=== PATIENT | female | born 1940 | race African-American/Black ===

== ENCOUNTER 2019-05-16 06:27 | Day surgery (SDC) | payer MEDICARE, MEDICAID ==
--- NOTE | 2019-05-10 16:15 | Opthalmology H&P ---
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 Elbert Orozco MD May 10, 2019 16:15
--- NOTE | 2019-05-10 16:17 | Pre-Procedure Note/Attestation ---
Pre-Procedure Note/Attestation Complete Prior to Procedure Planned Procedure: left Procedure Narrative: Cataract extraction with IOL implant left eye Indications for Procedure Pre-Operative Diagnosis: Cortical/Nuclear sclerotic cataract left eye Attestation I attest that I discussed the nature of the procedure; its benefits; risks and complications; and alternatives (and the risks and benefits of such alternatives ), prior to the procedure, with the patient (or the patient's legal senior outside sales representative). I attest that, if there was a reasonable possibility of needing a blood transfusion, the patient (or the patient's legal senior outside sales representative) was given the [facility] standardized written summary, pursuant to the Wade Rimma Blood Safety Act ([place] Health and Safety Code # 1645, as amended). I attest that I re-evaluated the patient just prior to the surgery and that there has been no change in the patient's H&P, except as documented below: Elbert Orozco MD May 10, 2019 16:17
[2019-05-16] VITALS (8 sets, daily range): BP systolic 54–133; BP diastolic 53–74
[~2019-05-16] VITALS: Ht 157.5 cm; Wt 71.7 kg
[~2019-05-16 06:27] MED LIST: ASPIR 8181 MG ORAL; DOCUSATE SODIU100 MG ORAL; GLIMEPIRIDE1 MG ORAL; LANTUS SOL100 UNIT/1 SUBQ; METAMUCIL FIBE3.4 G1 PO; TRULICITY0.75 MG/0. SQ; VITAMIN D32000 UNI3 PO
[2019-05-16] MEDS ORDERED: Akten 3.5% 1ml Btl LEFT EYE ONE (07:00)
[2019-05-16] MEDS ORDERED: Diclofenac Sod 0.1% Op Soln LEFT EYE SCH (07:00)
[2019-05-16] MEDS ORDERED: Tetracaine 0.5% Opth 4ml Soln LEFT EYE ONE (07:00)
[2019-05-16] MEDS ORDERED: Tobramycin Op Soln 0.3% 5ml LEFT EYE SCH (07:00)
[2019-05-16] MEDS ORDERED: Proparacaine 0.5% Opth Soln 15ml LEFT EYE ONE (07:00)
[2019-05-16] MEDS ORDERED: ATORVASTATIN CA40 MG ORAL (07:35)
[2019-05-16] MEDS: Cyclopentolate 1% Opth Sol 2ml LEFT EYE SCH ×3 (07:38→07:55)
[2019-05-16] MEDS: Phenylephrine 10% Opth Soln 5ml LEFT EYE SCH ×3 (07:39→07:55)
[2019-05-16] MEDS: Tropicamide 1% Opth 15ml Soln LEFT EYE SCH ×3 (07:39→07:55)
[2019-05-16] MEDS ORDERED: EPINEPHrine 1mg/1ml Amp ONE (07:53)
[2019-05-16] MEDS ORDERED: BSS 500ml btl ONE (07:54)
[2019-05-16] MEDS ORDERED: Sodium Hyaluronate 14 mg/ml 0.85ml ONE (07:54)
[2019-05-16] MEDS ORDERED: Povidone-Iodine 5% opth solution ONE (07:54)
[2019-05-16] MEDS ORDERED: BSS 15ml BTL ONE (07:54)
[2019-05-16] MEDS ORDERED: LR 1000ml 1,000 ML IVLG SCH (08:59)
--- NOTE | 2019-05-16 08:59 | Anethesia Preoperative Eval ---
Anesthesia Pre-op PMH/ROS General Date of Evaluation: May 16, 2019 Time of Evaluation: 08:56 Anesthesiologist: Madeleine ASA Score: ASA 3 Mallampati Score Class I : Soft palate, uvula, fauces, pillars visible Class II: Soft palate, uvula, fauces visible Class III: Soft palate, base of uvula visible Class IV: Only hard plate visible Mallampati Classification: Class II Surgeon: Pam Diagnosis: L eye cataract Surgical Procedure: L eye cataract extraction Anesthesia History: none Family History: no anesthesia problems Allergies: Coded Allergies: PENICILLINS (Verified Allergy, Severe, FACIAL ITCHING WITH BUMPS, 05/16/19) CODEINE (Verified Allergy, Mild, sick to my stomach, 05/16/19) Medications: see eMAR Patient NPO?: Yes Past Medical History Cardiovascular: Reports: HTN; Denies: CAD, [place], valve dz, arrhythmia, other Pulmonary: Denies: asthma, COPD, HERON, other Gastrointestinal/Genitourinary: Reports: GERD; Denies: CRI, ESRD, other Neurologic/Psychiatric: Reports: depression/anxiety; Denies: dementia, CVA, TIA, other Endocrine: Reports: DM - stable; Denies: hypothyroidism, steroids, other HEENT: Reports: cataract (L), cataract (R); Denies: glaucoma, [place] (L), [place] (R), other Hematology/Immune: Reports: anemia - mild; Denies: DVT, bleeding disorder, other Musculoskeletal/Integumentary: Reports: OA; Denies: RA, DJD, DDD, edema, other PMH Narrative: as above PSxH Narrative: see H&P Anesthesia Pre-op Phys. Exam Physician Exam Last Vital Signs Date Time Temp Pulse Resp B/P (MAP) Pulse Ox O2 Delivery O2 Flow Rate FiO2 05/16/19 07:41 Room Air 05/16/19 07:41 97.2 66 18 133/60 97 Constitutional: NAD Neurologic: CN 2-12 intact Cardiovascular: RRR, no M/R/G Respiratory: CTA Gastrointestinal: S/NT/ND Airway Exam Mallampati Score: Class II MO: limited Neck: stiff ROM: limited Teeth: missing Dentures: no upper, no lower Anesthesia Pre-op A/P Labs see chart Studies Pre-op Studies: EKG - SR Risk Assessment & Plan Assessment: ASA 2 Plan: MAC Status Change Before Surgery: Atul Sinclair MD May 16, 2019 08:59
[2019-05-16] MEDS ORDERED: fentaNYL 100 mcg/2 mL IV PRN (09:00)
[2019-05-16] MEDS ORDERED: fentaNYL 100 mcg/2 mL IV ONE (09:30)
[2019-05-16] MEDS ORDERED: Propofol 200mg/20ml IV ONE (09:30)
[2019-05-16] MEDS ORDERED: NS Irrig 1000ml ONE (09:30)
[2019-05-16] MEDS ORDERED: LR 1000ml ONE (09:30)
[2019-05-16] MEDS ORDERED: Sterile Water Irrig 1000ml IRRIG ONE (09:30)
--- NOTE | 2019-05-16 10:34 | Immediate Post-Op Evaluation ---
Immediate Post-Op Evalulation Immediate Post-Op Evalulation Procedure: L eye cataract extraction with IOL Date of Evaluation: May 16, 2019 Time of Evaluation: 10:33 IV Fluids: 300 Blood Products: none Estimated Blood Loss: none Urinary Output: none Blood Pressure Systolic: 132 Blood Pressure Diastolic: 76 Pulse Rate: 68 Respiratory Rate: 20 O2 Sat by Pulse Oximetry: 99 Temperature (Fahrenheit): 97.8 Pain Score (1-10): 1 Nausea: No Vomiting: No Complications none Patient Status: awake, patent, none Hydration Status: adequate Atul Salvador MD May 16, 2019 10:34
--- NOTE | 2019-05-16 11:11 | 48 Hour Post Anesthesia Eval ---
Post Anesthesia Evaluation Procedure: L eye cataract extraction with IOL Date of Evaluation: May 16, 2019 Time of Evaluation: 11:10 Blood Pressure Systolic: 109 0: 64 Pulse Rate: 68 Respiratory Rate: 20 Temperature (Fahrenheit): 97.6 O2 Sat by Pulse Oximetry: 98 Airway: patent Nausea: No Vomiting: No Pain Intensity: 1 Hydration Status: adequate Cardiopulmonary Status: stable Mental Status/LOC: patient returned to baseline Follow-up Care/Observations: none Post-Anesthesia Complications: none Follow-up care needed: ready to discharge Atul Salvador MD May 16, 2019 11:11
--- NOTE | 2019-05-17 11:07 | Brief Operative Note ---
Immediate Post Operative Note Operative Note Chief Complaint: Blurry vision Pre-op Diagnosis: Cortical/Nuclear sclerotic cataract left eye Procedure: Cataract extraction with IOL implant left eye Post-op Diagnosis: Pseudophakia OS Findings: consistent w/pre-op dx studies Surgeon: Elbert Orozco MD Anesthesiologist: Atul Salvador MD Anesthesia: MAC Specimen: none Complications: none Condition: stable Fluids: LR Estimated Blood Loss: none Drains: none Implant(s) used?: Yes - IOL OS Elbert Orozco MD May 17, 2019 11:07
--- NOTE | 2019-05-17 12:36 | Operative Note - PDOC ---
Operative Note Operative Note Date of Operation/Procedure: May 16, 2019 Chief Complaint: Blurry vision Pre-op Diagnosis: Cortical/Nuclear sclerotic cataract left eye Procedure: Cataract extraction with IOL implant left eye Post-op Diagnosis: Pseudophakia OS Operative Findings: consistent w/pre-op dx studies Surgeon: Elbert Orozco MD Anesthesiologist: Atul Salvador MD Anesthesia: MAC Specimen: none Complications: none Condition: stable Fluids: LR Estimated Blood Loss: none Drains: none Implant(s) used?: Yes - IOL OS Indications for Procedure Cortical/Nuclear sclerotic cataract left eye Description of Procedure This patient has been complaining visually significant cataract in the left eye with the best corrected visual acuity of 20/80 under moderate glare conditions worse. The patient complains of difficulties with glare in performing activities of daily living and wants to manage personal affairs with comfort and accuracy and see well enough to move with safety at home and outdoors. The risks, benefits and alternatives of the procedure were discussed with the patient in the office prior to scheduling surgery. All questions from the patient were answered after the surgical procedure was explained in detail. The risks of the procedure as explained to the patient include, but are not limited to, pain, infection, bleeding, loss of vision, retinal detachment, need for further surgery, loss of lens nucleus, double vision, etc. Alternative procedures were discussed which include, to do nothing or seek a second opinion. Informed consent for this procedure was obtained from the patient. The patient was referred to a primary care physician for a cardiopulmonary clearance prior to surgery, after proper evaluation was done patient was properly scheduled for outpatient surgery. The patient was brought to the operating room where the anesthesiologist established I.V. lines and cardiac monitoring leads. Mild intravenous sedation was administered. The patient was then prepared with a 5% solution of povidone -iodine to the conjunctival fornix and lashes, and a 5% solution of povidone- iodine to the lids and periorbital skin. The patient was then draped in the usual sterile fashion. A lid speculum was then placed in the operative eye. A keratome blade was then used to create a biplanar incision into the anterior chamber. Viscoelastics was then instilled into the anterior chamber. A capsulorrhexis was then fashioned with an utrata forceps A G 27 cannula was used to hydrodissect and hydro delineate the lens nucleus. Paracentesis incision was made at 3 o'clock with sharp blade. The phacoemulsification unit, after being properly adjusted and tested, was then used to emulsify the nucleus. Residual cortical material was aspirated with the irrigation and aspiration unit. Healon was then instilled into the anterior chamber. The corneal wound was then enlarged to the size of the optic with the roldan keratome blade. The intraocular lens was then inspected for right power and size and thought to be satisfactory. Then the lens was gently placed in the capsular bag. Positioning within the capsular bag was confirmed by direct visualization. Optic centration was accomplished with a Sinskey hook. Viscoelastics was removed from the anterior chamber using the irrigation and aspiration unit. The corneal wound was then tested for leaks and none were found. The lid speculum were then removed. Sponge and needle counts were correct. An eye patch and shield were placed over the operative eye. The patient was taken to the recovery room in stable condition. There were no complications. The patient tolerated the procedure well. The patient was then transferred to the ambulatory surgery unit in stable and satisfactory condition , was given detailed written instructions and asked to follow up in the office the next day. Elbert Orozco MD May 17, 2019 12:36
== END 2019-05-16 11:50 | disposition home or self-care (01) ==
LOC: SUR 06:27
DX: H25.012 Cortical age-related cataract, left eye (principal); H25.12 Age-related nuclear cataract, left eye; I10 Essential (primary) hypertension; K21.9 Gastro-esophageal reflux disease without esophagitis; F41.9 Anxiety disorder, unspecified; F32.9 Major depressive disorder, single episode, unspecified; E11.9 Type 2 diabetes mellitus without complications; M19.90 Unspecified osteoarthritis, unspecified site; Z88.0 Allergy status to penicillin; Z88.6 Allergy status to analgesic agent
CPT/HCPCS: 66984; 82962; J2704; J3010; J7120; V2632; 94003; 94150

== ENCOUNTER → 2019-10-10 | Day surgery (SDC) | payer MEDICARE, MEDICAID ==
--- NOTE | 2019-10-05 14:18 | Opthalmology H&P ---
Ophthalmology H&P H&P Chief Complaint: decreased vision in right eye HPI Vision Affects Ability to: read, manage personal affairs Past Ocular History: retinal problems - Drusen OU HPI Narrative Blurry vision Exam Visual Acuity: OD 20/40-2 OS 20/30 Tension: OD 18 OS 15 Eye Exam: normal OU: external exam, palpebral fissure-width, marginal reflex distance, levator function, corneas, anterior chambers; findings: lens - NS/CC Cataract OD, Pseudo OS, fundus exam - AMD OU Assessment/Plan Treatment Plan: cataract extraction w/ lens implant Goals of Treatment: improvement of vision, enhance quality of life Attestation Attestation The risks and benefits of the surgery as well as alternative procedures were explained to the patient in detail. Elbert Orozco MD Oct 05, 2019 14:18
--- NOTE | 2019-10-05 14:20 | Pre-Procedure Note/Attestation ---
Pre-Procedure Note/Attestation Complete Prior to Procedure Planned Procedure: right Procedure Narrative: Cataract extraction with intraocular lens implant right eye Indications for Procedure Pre-Operative Diagnosis: Nuclear sclerotic/ Cortical cataract right eye Attestation I attest that I discussed the nature of the procedure; its benefits; risks and complications; and alternatives (and the risks and benefits of such alternatives ), prior to the procedure, with the patient (or the patient's legal pharmaceutical specialty representative). I attest that, if there was a reasonable possibility of needing a blood transfusion, the patient (or the patient's legal pharmaceutical specialty representative) was given the [facility] standardized written summary, pursuant to the Wade Rimma Blood Safety Act ([place] Health and Safety Code # 1645, as amended). I attest that I re-evaluated the patient just prior to the surgery and that there has been no change in the patient's H&P, except as documented below: Elbert Orozco MD Oct 05, 2019 14:20
[2019-10-06 08:57] LABS: HEMATOCRIT 40.7 % (37.0-47.0); HEMOGLOBIN 13.9 G/DL (12.0-16.0); MEAN CORPUSCULAR VOLUME 87 FL (80-99); PLATELET COUNT 178 K/UL (150-450); RED BLOOD COUNT 4.69 M/UL (4.20-5.40); RED CELL DISTRIBUTION WIDTH 11.2 % (11.6-14.8); WHITE BLOOD COUNT 4.7 K/UL (4.8-10.8)
[2019-10-06 09:18] LABS: ANION GAP 4 mmol/L (5-15); CALCIUM 9.5 MG/DL (8.5-10.1); CARBON DIOXIDE 34 MMOL/L (21-32); CHLORIDE 101 MMOL/L (98-107); CREATININE 0.8 MG/DL (0.55-1.30); POTASSIUM 4.2 MMOL/L (3.5-5.1); SODIUM 139 MMOL/L (136-145)
[2019-10-06 09:24] LABS: BLOOD UREA NITROGEN 13 mg/dL (7-18)
--- NOTE | 2019-10-06 11:01 | Diagnostic Imaging Report ---
Indication: Shortness of breath Technique: 2 views of the chest Comparison: None Findings: Since the lungs and pleural spaces are clear. The heart size is normal. The aorta is tortuous and calcified Impression: No acute process
[~2019-10-10] VITALS: Ht 165.1 cm; Wt 75.3 kg
[2019-10-10] VITALS (8 sets, daily range): BP systolic 101–132; BP diastolic 57–63
[~2019-10-10] MED LIST changes: +ATORVASTATIN CA40 MG ORAL; +Akten 3.5% 1ml Btl RIGHT EYE ONE; +Atropine Sulfate 0.4mg/ml inj IVP PRN; +BSS 15ml BTL ONE; +BSS 500ml btl ONE; +DiphenhydrAMINE 50mg/ml Inj IVP PRN; +EPINEPHrine 1mg/1ml Amp ONE; +Ketorolac 30mg Inj IV PRN; +LORazepam Inj 2mg/ml 1ml IV PRN; +LR 1000ml 1,000 ML IVLG SCH; +LR 1000ml ONE; +Labetalol 5mg/ml 20ml vial IV PRN; +Lidocaine 1% MPF 10mg/ml 5ml ONE; +Meperidine 25mg/0.5ml Inj (FOR RIGORS ONLY) IV PRN; +Metoclopramide 10mg/2ml Inj IVP PRN; +Midazolam 2mg/2ml Inj IVP PRN; +Midazolam 2mg/2ml Inj ONE; +NS Irrig 1000ml ONE; +Pilocarpine 1% Opth 15ml Soln ONE; +Polysporin Oint 15gm TOPIC ONE; +Povidone-Iodine 5% opth solution ONE; +Proparacaine 0.5% Opth Soln 15ml RIGHT EYE ONE; +Sodium Hyaluronate 10 mg/ml 0.85ml ONE; +Sterile Water Irrig 1000ml IRRIG ONE; +Tetracaine 0.5% Opth 4ml Soln RIGHT EYE ONE; +fentaNYL 100 mcg/2 mL IV PRN; +prednisoLONE acetate 1% Opth Susp 1ml ONE
[2019-10-10] MEDS: Diclofenac Sod 0.1% Op Soln RIGHT EYE SCH ×3 (06:17→06:37)
[2019-10-10] MEDS: Tropicamide 1% Opth 15ml Soln RIGHT EYE SCH ×3 (06:17→06:37)
[2019-10-10] MEDS: Tobramycin Op Soln 0.3% 5ml RIGHT EYE SCH ×3 (06:17→06:37)
[2019-10-10] MEDS: Cyclopentolate 1% Opth Sol 2ml RIGHT EYE SCH ×3 (06:17→06:37)
[2019-10-10] MEDS: Phenylephrine 10% Opth Soln 5ml RIGHT EYE SCH ×3 (06:17→06:37)
--- NOTE | 2019-10-10 08:19 | Anethesia Preoperative Eval ---
Anesthesia Pre-op PMH/ROS General Date of Evaluation: Oct 10, 2019 Time of Evaluation: 08:42 Anesthesiologist: Claudia ASA Score: ASA 3 Mallampati Score Class I : Soft palate, uvula, fauces, pillars visible Class II: Soft palate, uvula, fauces visible Class III: Soft palate, base of uvula visible Class IV: Only hard plate visible Mallampati Classification: Class II Surgeon: Pam Diagnosis: Cat OD Surgical Procedure: Cat Ext IOL OD Anesthesia History: none Family History: no anesthesia problems Allergies: Coded Allergies: PENICILLINS (Verified Allergy, Severe, FACIAL ITCHING WITH BUMPS, 05/16/19) CODEINE (Verified Allergy, Mild, sick to my stomach, 05/16/19) Medications: see eMAR Patient NPO?: Yes Past Medical History Cardiovascular: Reports: HTN, other - HL Gastrointestinal/Genitourinary: Reports: GERD, other - Renal Cyst Endocrine: Reports: DM HEENT: Reports: cataract (L), cataract (R) Anesthesia Pre-op Phys. Exam Physician Exam Last Vital Signs Date Time Temp Pulse Resp B/P (MAP) Pulse Ox O2 Delivery O2 Flow Rate FiO2 10/10/19 06:25 97.0 76 16 101/59 99 Room Air Constitutional: NAD Neurologic: CN 2-12 intact Cardiovascular: RRR Respiratory: CTA Gastrointestinal: S/NT/ND Airway Exam Mallampati Score: Class II MO: full ROM: full Teeth: missing, intact Anesthesia Pre-op A/P Risk Assessment & Plan Assessment: ASA 3 Plan: TIVA Status Change Before Surgery: No Arben Taylor MD Oct 10, 2019 08:19
--- NOTE | 2019-10-10 08:20 | Immediate Post-Op Evaluation ---
Immediate Post-Op Evalulation Immediate Post-Op Evalulation Procedure: Cat Ext IOL OD Date of Evaluation: Oct 10, 2019 Time of Evaluation: 09:32 IV Fluids: 600 LR Blood Products: 0 Estimated Blood Loss: 1 Urinary Output: 0 Blood Pressure Systolic: 132 Blood Pressure Diastolic: 59 Pulse Rate: 72 Respiratory Rate: 16 O2 Sat by Pulse Oximetry: 99 Temperature (Fahrenheit): 97.7 Pain Score (1-10): 1 Nausea: No Vomiting: No Complications 0 Patient Status: awake, reacts, patent, none Hydration Status: adequate Arben Taylor MD Oct 10, 2019 08:20
--- NOTE | 2019-10-10 08:21 | 48 Hour Post Anesthesia Eval ---
Post Anesthesia Evaluation Procedure: Cat Ext IOL OD Date of Evaluation: Oct 10, 2019 Airway: patent Nausea: No Vomiting: No Pain Intensity: 1 Hydration Status: adequate Cardiopulmonary Status: Stable Mental Status/LOC: patient returned to baseline Follow-up Care/Observations: 0 Post-Anesthesia Complications: 0 Follow-up care needed: ready to discharge Arben Taylor MD Oct 10, 2019 08:21
--- NOTE | 2019-10-10 09:26 | 48 Hour Post Anesthesia Eval ---
Post Anesthesia Evaluation Procedure: Cat Ext IOL OD Date of Evaluation: Oct 10, 2019 Time of Evaluation: 11:42 Blood Pressure Systolic: 131 0: 58 Pulse Rate: 72 Respiratory Rate: 18 Temperature (Fahrenheit): 98 O2 Sat by Pulse Oximetry: 100 Nausea: No Vomiting: No Pain Intensity: 1 Hydration Status: adequate Cardiopulmonary Status: Stable Mental Status/LOC: patient returned to baseline Follow-up Care/Observations: 0 Post-Anesthesia Complications: 0 Follow-up care needed: ready to discharge Arben Taylor MD Oct 10, 2019 09:26
--- NOTE | 2019-10-10 13:20 | Brief Operative Note ---
Immediate Post Operative Note Operative Note Chief Complaint: Blurry vision Pre-op Diagnosis: Nuclear sclerotic/ Cortical cataract right eye Procedure: Cataract extraction with IOL implant right eye Post-op Diagnosis: Pseudophakia OD Findings: consistent w/pre-op dx studies Surgeon: Elbert Orozco MD Anesthesiologist: Arben Taylor MD Anesthesia: MAC Specimen: none Complications: none Condition: stable Fluids: LR Estimated Blood Loss: none Drains: none Implant(s) used?: Yes - IOL-OD Elbert Orozco MD Oct 10, 2019 13:20
--- NOTE | 2019-10-10 13:25 | Operative Note - PDOC ---
Operative Note Operative Note Date of Operation/Procedure: Oct 10, 2019 Chief Complaint: Blurry vision Pre-op Diagnosis: Nuclear sclerotic/ Cortical cataract right eye Procedure: Cataract extraction with IOL implant right eye Post-op Diagnosis: Pseudophakia OD Operative Findings: consistent w/pre-op dx studies Surgeon: Elbert Orozco MD Anesthesiologist: Arben Taylor MD Anesthesia: MAC Specimen: none Complications: none Condition: stable Fluids: LR Estimated Blood Loss: none Drains: none Implant(s) used?: Yes - IOL-OD Indications for Procedure Nuclear sclerotic/Cortical cataract right eye Description of Procedure This patient has been complaining visually significant cataract in the right eye with the best corrected visual acuity of 20/60 under moderate glare conditions worse. The patient complains of difficulties with glare in performing activities of daily living and wants to manage personal affairs with comfort and accuracy and see well enough to move with safety at home and outdoors. The risks, benefits and alternatives of the procedure were discussed with the patient in the office prior to scheduling surgery. All questions from the patient were answered after the surgical procedure was explained in detail. The risks of the procedure as explained to the patient include, but are not limited to, pain, infection, bleeding, loss of vision, retinal detachment, need for further surgery, loss of lens nucleus, double vision, etc. Alternative procedures were discussed which include, to do nothing or seek a second opinion. Informed consent for this procedure was obtained from the patient. The patient was referred to a primary care physician for a cardiopulmonary clearance prior to surgery, after proper evaluation was done patient was properly scheduled for outpatient surgery. The patient was brought to the operating room where the anesthesiologist established I.V. lines and cardiac monitoring leads. Mild intravenous sedation was administered. The patient was then prepared with a 5% solution of povidone -iodine to the conjunctival fornix and lashes, and a 5% solution of povidone- iodine to the lids and periorbital skin. The patient was then draped in the usual sterile fashion. A lid speculum was then placed in the operative eye. A keratome blade was then used to create a biplanar incision into the anterior chamber. Viscoelastics was then instilled into the anterior chamber. A capsulorrhexis was then fashioned with an utrata forceps A G 27 cannula was used to hydrodissect and hydro delineate the lens nucleus. Paracentesis incision was made at 3 o'clock with sharp blade. The phacoemulsification unit, after being properly adjusted and tested, was then used to emulsify the nucleus. Residual cortical material was aspirated with the irrigation and aspiration unit. Healon was then instilled into the anterior chamber. The corneal wound was then enlarged to the size of the optic with the roldan keratome blade. The intraocular lens was then inspected for right power and size and thought to be satisfactory. Then the lens was gently placed in the capsular bag. Positioning within the capsular bag was confirmed by direct visualization. Optic centration was accomplished with a Sinskey hook. Viscoelastics was removed from the anterior chamber using the irrigation and aspiration unit. The corneal wound was then tested for leaks and none were found. The lid speculum were then removed. Sponge and needle counts were correct. An eye patch and shield were placed over the operative eye. The patient was taken to the recovery room in stable condition. There were no complications. The patient tolerated the procedure well. The patient was then transferred to the ambulatory surgery unit in stable and satisfactory condition , was given detailed written instructions and asked to follow up in the office the next day. Elbert Orozco MD Oct 10, 2019 13:25
== END | disposition home or self-care (01) ==
LOC: SUR 05:51
DX: H25.11 Age-related nuclear cataract, right eye (principal); H25.011 Cortical age-related cataract, right eye; Z88.0 Allergy status to penicillin; Z88.6 Allergy status to analgesic agent; I10 Essential (primary) hypertension; E78.5 Hyperlipidemia, unspecified; K21.9 Gastro-esophageal reflux disease without esophagitis; E11.9 Type 2 diabetes mellitus without complications
CPT/HCPCS: 36415; 66984; 71046; 80048; 85007; 85025; 85610; 85730; 93005; 94003; J0171; J1100; J2250; J2704; J3370; J7120; V2632; 94150